=== PATIENT | male | born 1975 | race Two or more races ===

== ENCOUNTER 2019-11-05 00:49 | Emergency (ER) | payer MEDICARE, MEDICAID ==
[~2019-11-05] VITALS: Ht 180.3 cm; Wt 149.2 kg
[~2019-11-05 00:49] MED LIST: HCTZ25T PO; LOSA25TA38 PO; SAXA1TAB PO
[2019-11-05 02:17] LABS: Basophils # (auto) 0 uL; Basophils % (auto) 0.5 % (0.0-2.0); Hemoglobin 12.6 g/dL (13.5-17.5); Neutrophils # (auto) 3.7 uL
[2019-11-05 02:19] LABS: Eosinophils # (auto) 0 uL; Eosinophils % (auto) 0.8 % (0.0-7.0); Hematocrit 38.2 % (41.0-53.0); Lymphocytes # (auto) 1.6 uL; Lymphocytes % (auto) 27.9 % (10.0-50.0); Mean Corpuscular Hemoglobin 23.8 pg (28.0-32.0); Mean Corpuscular Volume 72.3 fL (80.0-100.0); Monocytes # (auto) 0.4 uL; Monocytes % (auto) 7.6 % (0.0-12.0); Neutrophils % (auto) 63.2 % (37.0-80.0); Nucleated Red Blood Cells % 0.1 %; Platelet Count (auto) 121 10^3/uL (140-450); Red Blood Cells 5.29 10^6/uL (4.5-5.90); Red Cell Distribution Width 16.2 % (11.8-14.3); White Blood Cell 5.9 10^3/uL (4.4-10.8)
[2019-11-05 02:34] LABS: Potassium 4.2 mmol/L (3.5-5.1)
[2019-11-05 02:35] LABS: Albumin 3.2 g/dL (3.4-5.0); BUN/Creatinine Ratio 12.4; Calcium 8.5 mg/dL (8.5-10.1)
[2019-11-05 02:37] LABS: Bilirubin, Total 0.3 mg/dL (0.2-1.0); Total Protein 7.5 g/dL (6.4-8.2)
[2019-11-05] MEDS ORDERED: cefTRIAXone 1GM/50ML D5W 50 ML IV ONE (03:00)
[2019-11-05 04:22] VITALS: BP 135/90
== END 2019-11-05 04:19 | disposition home or self-care (01) ==
LOC: ER 00:49
DX: S61.012A Laceration without foreign body of left thumb without damage to nail, initial encounter (principal); E11.65 Type 2 diabetes mellitus with hyperglycemia; E78.5 Hyperlipidemia, unspecified; I10 Essential (primary) hypertension; W26.0XXA Contact with knife, initial encounter; Y93.89 Activity, other specified; Y92.89 Other specified places as the place of occurrence of the external cause; Y99.8 Other external cause status
CPT/HCPCS: 12001; 36415; 80053; 82962; 85025; 96365; 99283; J0696

== ENCOUNTER 2020-03-29 20:00 | Emergency (ER) | payer MEDICARE, MEDICAID ==
[~2020-03-29] VITALS: Ht 180.3 cm; Wt 136.1 kg
[2020-03-29 20:53] LABS: Basophils # (auto) 0 10 ^3/uL (0-0.2); Eosinophils # (auto) 0 10 ^3/uL (0-0.8); Eosinophils % (auto) 0.5 % (0.0-7.0); Neutrophils # (auto) 4.2 10 ^3/uL (1.6-8.6); Nucleated Red Blood Cells % 0.1 %
[2020-03-29 20:55] LABS: Basophils % (auto) 0.4 % (0.0-2.0); Hematocrit 48.5 % (41.0-53.0); Hemoglobin 15.6 g/dL (13.5-17.5); Lymphocytes # (auto) 1.2 10 ^3/uL (0.4-5.4); Lymphocytes % (auto) 20.9 % (10.0-50.0); Mean Corpuscular Hemoglobin 23.6 pg (28.0-32.0); Mean Corpuscular Hgb Conc. 32.1 g/dL (32.0-36.0); Mean Corpuscular Volume 73.4 fL (80.0-100.0); Monocytes # (auto) 0.4 10 ^3/uL (0-1.3); Monocytes % (auto) 7.4 % (0.0-12.0); Neutrophils % (auto) 70.8 % (37.0-80.0); Platelet Count (auto) 131 10^3/uL (140-450); Red Cell Distribution Width 18.4 % (11.8-14.3)
[2020-03-29 21:05] LABS: Partial Thromboplastin Time 29.1 sec (23.64-32.05)
[2020-03-29 21:12] LABS: Alanine Aminotransferase 103 U/L (16-61); Albumin 3.3 g/dL (3.4-5.0); Anion Gap 5 (5-15); Aspartate Aminotransferase 44 U/L (15-37); BUN/Creatinine Ratio 15.3; Blood Urea Nitrogen 11 mg/dL (7-18); Calcium 8.9 mg/dL (8.5-10.1); Carbon Dioxide 29 mmol/L (21-32); Chloride 103 mmol/L (98-107); GFR African American 153 mL/min; GFR Non-African American 127 mL/min; Glucose 157 mg/dL (74-106); Potassium 4.1 mmol/L (3.5-5.1); Sodium 137 mmol/L (136-145)
[2020-03-29 21:17] LABS: Alkaline Phosphatase 119 U/L (45-117); Bilirubin, Total 0.3 mg/dL (0.2-1.0); Total Protein 7.8 g/dL (6.4-8.2)
[2020-03-29 23:08] VITALS: BP 141/80
[2020-03-30] MEDS ORDERED: HYDROcodone-ACET 10/325MG TAB PO ONE
== END 2020-03-30 00:28 | disposition home or self-care (01) ==
LOC: EDBD 20:00 → ER 20:03
DX: R07.89 Other chest pain (principal); I10 Essential (primary) hypertension; E78.5 Hyperlipidemia, unspecified; E11.9 Type 2 diabetes mellitus without complications; Z79.899 Other long term (current) drug therapy
CPT/HCPCS: 36415; 71045; 76705; 80053; 83735; 83880; 84443; 84484; 85025; 85379; 85610; 85730; 93005

== ENCOUNTER 2023-12-31 02:12 | Emergency (ER) | payer OTHER, MEDICAID ==
[~2023-12-31] VITALS: Ht 180.3 cm; Wt 150.0 kg
[~2023-12-31 02:12] MED LIST changes: -HCTZ25T PO; +HYDR25TA5 PO; +LOSA25TA15 PO; -LOSA25TA38 PO
[2023-12-31] MEDS ORDERED: SODIUM CHLORIDE 0.9% 1,000 ML IV ONE (04:30)
[2023-12-31 04:48] LABS: Basophils # (auto) 0 10 ^3/uL (0-0.2); Basophils % (auto) 0.3 % (0.0-2.0); Eosinophils # (auto) 0 10 ^3/uL (0-0.8); Eosinophils % (auto) 0.6 % (0.0-7.0); Mean Corpuscular Hemoglobin 26.9 pg (28.0-32.0); Monocytes # (auto) 0.5 10 ^3/uL (0-1.3)
[2023-12-31 04:51] LABS: Hematocrit 47.8 % (41.0-53.0); Hemoglobin 15.9 g/dL (13.5-17.5); Lymphocytes # (auto) 2.1 10 ^3/uL (0.4-5.4); Lymphocytes % (auto) 27.6 % (10.0-50.0); Mean Corpuscular Hgb Conc. 33.2 g/dL (32.0-36.0); Monocytes % (auto) 7.1 % (0.0-12.0); Neutrophils % (auto) 64.4 % (37.0-80.0); Nucleated Red Blood Cells % 0.1 %; White Blood Cell 7.8 10^3/uL (4.4-10.8)
[2023-12-31 04:59] LABS: Alanine Aminotransferase 68 U/L (7-40); Albumin 4.4 g/dL (3.2-4.8); Alkaline Phosphatase 131 U/L (46-116); Anion Gap 6 (5-15); Aspartate Aminotransferase 35 U/L (13-40); BUN/Creatinine Ratio 9.4 (10.0-20.0); Bilirubin, Total 0.4 mg/dL (0.2-1.0); Blood Urea Nitrogen 8 mg/dL (9-23); Calcium 9.7 mg/dL (8.5-10.1); Carbon Dioxide 25 mmol/L (20-30); Chloride 103 mmol/L (98-107); Glucose 307 mg/dL (74-106); Potassium 3.9 mmol/L (3.5-5.1); Sodium 134 mmol/L (136-145); Total Protein 7.6 g/dL (5.7-8.2)
[2023-12-31 05:25] VITALS: TEMP 98.2
[2023-12-31 06:00] VITALS: BP 154/83; PULSE 87; RESP 20; O2SAT 96
== END 2023-12-31 06:50 | disposition home or self-care (01) ==
LOC: ER 02:12
DX: S00.01XA Abrasion of scalp, initial encounter (principal); I10 Essential (primary) hypertension; E11.9 Type 2 diabetes mellitus without complications; E78.5 Hyperlipidemia, unspecified; W18.39XA Other fall on same level, initial encounter; Y93.89 Activity, other specified; Y92.89 Other specified places as the place of occurrence of the external cause; Y99.8 Other external cause status
CPT/HCPCS: 36415; 70450; 80053; 85025; 96360; 99285; J7030